=== PATIENT | female | born 1990 | race Caucasian/White ===

== ENCOUNTER 2016-08-15 18:04 | Emergency (ER) | payer OTHER ==
[~2016-08-15] VITALS: Ht 170.2 cm; Wt 65.9 kg
[~2016-08-15 18:04] MED LIST: ADDERALL XR15 MG PO; BIRTH CONTROL; BIRTH CONTROL PILLS; Birth Control Pill; COLACE 100100 MG/CAP PO; DAZIDOX10 MG PO; DEPO-PROVER400 MG/ML IM; FLEXERIL 1010 MG/TAB PO; GENTAMICIN EYE D5 ML OD; GENTAMICIN EYE D5 ML OU; LORTAB 5/500 501 TAB PO; MEDROL 4MG DOSPA4 MG PO; MULTIPLE VITAMI1 CAP PO; NAPROSYN500 MG PO; NORCO 325 MG-51 TAB PO; PERCOCET 325 MG1 TA2 PO; ROXICODONE 55 MG/TAB PO; TRI-SPRINTEC 281 TAB PO; TRINESSA 281 TAB PO; WELLBUTRIN 75MG75 MG PO; WELLBUTRIN XL300 M1; ZOFRAN 4MG T4 MG/TAB PO
[2016-08-15 18:06] VITALS: BP 126/72; TEMP 98.5
[2016-08-15] MEDS ORDERED: LOW-OGESTREL 281 TAB PO (18:10)
[2016-08-15] MEDS ORDERED: PRENATAL PLUS PO (18:11)
[2016-08-15] MEDS ORDERED: PEPCID 20MG TAB20 MG PO (18:54)
[2016-08-15] MEDS ORDERED: PHENERGAN 25 TA25 MG PO (18:54)
[2016-08-15 20:17] VITALS: PULSE 61
== END 2016-08-15 20:18 | disposition home or self-care (01) ==
LOC: COL.ER 18:04
DX: K52.9 Noninfective gastroenteritis and colitis, unspecified (principal)

== ENCOUNTER 2016-10-02 23:49 | Emergency (ER) | payer OTHER ==
[~2016-10-02] VITALS: Ht 172.7 cm; Wt 63.6 kg
[~2016-10-02 23:49] MED LIST changes: +LOW-OGESTREL 281 TAB PO; +PEPCID 20MG TAB20 MG PO; +PHENERGAN 25 TA25 MG PO; +PRENATAL PLUS PO
[2016-10-02 23:56] VITALS: BP 124/81; TEMP 98
[2016-10-02] MEDS ORDERED: MULTIPLE VITAMI1 CAP PO (23:58)
[2016-10-03 01:10] VITALS: PULSE 69
== END 2016-10-03 01:09 | disposition home or self-care (01) ==
LOC: COL.ER 23:49
DX: N94.6 Dysmenorrhea, unspecified (principal); Z32.02 Encounter for pregnancy test, result negative
CPT/HCPCS: J1885; J3360